=== PATIENT | female | born 1970 | race Caucasian/White ===

== ENCOUNTER 2020-07-31 08:36 | Emergency (ER) | payer OTHER, SELFPAY ==
--- NOTE | 2020-07-31 08:50 | ED.SKABFB ---
HPI - Skin/Abscess/Foreign Bdy General Chief complaint: Extremity Injury, Upper Stated complaint: infected finger Source: patient and RN notes reviewed Limitations: no limitations History of Present Illness HPI narrative: The patient, previously healthy right-handed hairdresser, presents with finger pain. Patient states she has shorter couple day history of right distal, long finger pain at the nailbed insertion. No prior/other rashes, known injury, discharge, streaking; symptoms are mild, worse with activity or palpation. She requests[needle] incision of slightly indurated's area, as she is going to a wedding-she declines anesthesia. Related Data Allergies Allergy/AdvReac Type Severity Reaction Status Date / Time acetaminophen [From Vicodin] Allergy Hives Verified 07/31/20 08:53 hydrocodone [From Vicodin] Allergy Hives Verified 07/31/20 08:53 morphine AdvReac Vomiting Verified 07/31/20 08:52 Review of Systems Review of Systems: Narrative: General/Constitutional: No weight loss,fever Eyes: N0: Redness,discharge Ears/Nose/Throat: No: Epistaxis,ear discharge Respiratory: Denies: Hemoptysis Gastrointestinal: No Vomiting, Bleeding-rectal Skin: No Lumps, +eruption PMFSH Comments At time of signature, agree with nursing past medical, surgical, social and family history. There is no relevant family history pertinent to the presenting complaint Exam Narrative: Exam Narrative: General Appearance: Well appearing, , Conjunctiva clear Mouth/Throat: Normal appearing, Normal lips, Supple Respiratory: Airway patent, No respiratory distress Skin: Paronychia of the distal nailbed otherwise warm, Dry, Normal color MS: Normal strength (mostly intact, limited flexion/extension by pain), Tenderness ( nail/laterally, with mild decreased ROM), Swelling (laterally), Other (no anterior drawer, no collateral laxity, Neurological: A&O x3, Normal affect Course Vital Signs Vital signs: Vital Signs Temperature 97.9 F 07/31/20 08:57 Pulse Rate 94 07/31/20 08:57 Respiratory Rate 16 07/31/20 08:57 Blood Pressure 122/81 07/31/20 08:57 Pulse Oximetry 99 07/31/20 08:57 Temperature 97.9 F 07/31/20 08:57 Pulse Rate 94 07/31/20 08:57 Respiratory Rate 16 07/31/20 08:57 Blood Pressure 122/81 07/31/20 08:57 Pulse Oximetry 99 07/31/20 08:57 Procedures Abscess I/D hand: Date of Incision: 07/31/20 Side (if applicable): right Local Anesthetic: none Technique: needle aspiration Irrigation: No Packing used?: none I&D Results: Pus Discharge Plan Discharge Clinical Impression: Paronychia of finger of right hand Patient Disposition: Home, Self-Care Condition: Stable Instructions: Antibiotic Form, Paronychia (ED) Additional Instructions: You may use OTC pain medicines Stop antibiotics if diarrhea occurs, take with food to prevent heartburn Prescriptions: New clindamycin HCl 300 mg capsule 300 mg PO TID Qty: 15 RF: 0 mupirocin 2 % ointment 1 applic TOPICAL TID Qty: 30 RF: 0 Follow-up/Referrals: UNKNOWN,DOCTOR [Primary Care Provider] -
[2020-07-31 08:57] VITALS: BP 122/81; PULSE 94; RESP 16; TEMP 36.6; O2SAT 99
== END 2020-07-31 09:05 | disposition home or self-care (01) ==
PROVIDERS: Emergency Provider Emergency Medicine
DX: L03.011 Cellulitis of right finger (principal)
CPT/HCPCS: 10160; 99203; G0463